=== PATIENT | female | born 1955 | race Caucasian/White ===

== ENCOUNTER 2020-03-01 11:33 | Outpatient (CLI) | payer BC, SELFPAY ==
[2020-03-01 13:03] LABS: Thyroid Stimulating Hormone 0.044 uIU/mL (0.465-4.680)
[2020-03-01 13:35] LABS: Free T4 Free Thyroxine 1.48 ng/mL (0.78-2.19)
== END 2020-03-01 11:34 | disposition home or self-care (01) ==
LOC: ANHLAB 11:35
PROVIDERS: PCP Internal Medicine; Visit Provider Nurse Practitioner
DX: E03.9 Hypothyroidism, unspecified (principal)
CPT/HCPCS: 36415; 84439; 84443

== ENCOUNTER 2020-05-07 10:01 | Outpatient (CLI) | payer BC, SELFPAY ==
[2020-05-07 10:59] LABS: Hematocrit 43.7 % (37.0-47.0); Hemoglobin 14.6 g/dL (12.0-15.0)
[2020-05-07 11:18] LABS: Alanine Aminotransferase 86 U/L (4-35); Albumin Level 4.6 g/dL (3.5-5.1); Alkaline Phosphatase 103 U/L (38-126); Anion Gap 7 mmol/L (8-16); Aspartate Amino Transferase 62 U/L (14-36); Bilirubin,Total 0.6 mg/dL (0.2-1.3); Blood Urea Nitrogen 12 mg/dL (7-17); Calcium 9.4 mg/dL (8.4-10.2); Carbon Dioxide 29 mmol/L (22-30); Chloride 104 mmol/L (98-107); Cholesterol 288 mg/dL (0-200); Estimated Glomerular Filt Rate > 60; Glucose 110 mg/dL (65-105); HDL Direct 45 mg/dL; Potassium 4.5 mmol/L (3.4-5.0); Sodium 140 mmol/L (137-145); Triglycerides 242 mg/dL (<150)
[2020-05-07 11:30] LABS: LDL Cholesterol Direct 191 mg/dL
[2020-05-07 11:51] LABS: Vitamin D 25 Hydroxy 40.2 ng/mL
== END 2020-05-07 10:02 | disposition home or self-care (01) ==
LOC: ANHLAB 10:02
PROVIDERS: PCP Internal Medicine; Visit Provider Internal Medicine
DX: E03.9 Hypothyroidism, unspecified (principal); I10 Essential (primary) hypertension; Z79.899 Other long term (current) drug therapy; E78.5 Hyperlipidemia, unspecified; E55.9 Vitamin D deficiency, unspecified; D64.9 Anemia, unspecified
CPT/HCPCS: 36415; 80053; 80061; 82306; 84443; 85014; 85018

== ENCOUNTER 2020-06-06 08:36 | Outpatient (CLI) | payer BC, SELFPAY ==
--- NOTE | ~2020-06-06 | MM_ITS ---
EXAMINATION: MM screening [facility] BI w eddie HISTORY: Screening mammogram TECHNIQUE: Craniocaudal and mediolateral oblique 3-D tomosynthesis images were obtained and synthetic 2-D images were generated. CAD analysis was submitted and interpreted. COMPARISON: 06/09/2019, 05/29/2019, 05/23/2018 BREAST PARENCHYMAL COMPOSITION: The breasts are almost entirely fatty. FINDINGS: There is no evidence of suspicious mass, calcification, or architectural distortion to sugg est malignancy in either breast. There has been no suspicious interval change. IMPRESSION: 1. No mammographic evidence of malignancy. 2. Recommend routine screening mammography in one year. BI-RADS Category 1: Negative Reviewed, dictated and finalized at location A.
== END 2020-06-06 08:37 | disposition home or self-care (01) ==
LOC: ANHIMG 08:44
PROVIDERS: PCP Internal Medicine; Visit Provider Internal Medicine
DX: Z12.31 Encounter for screening mammogram for malignant neoplasm of breast (principal)
CPT/HCPCS: 77063; 77067

== ENCOUNTER 2020-06-17 02:40 | Outpatient (CLI) | payer BC, SELFPAY ==
[2020-06-17 18:16] LABS: SARS-CoV-2 RNA PCR Negative
== END 2020-06-17 02:41 | disposition home or self-care (01) ==
LOC: ANHCOVIDDT 02:41
PROVIDERS: PCP Internal Medicine; Visit Provider Internal Medicine Gastroenterology
DX: Z01.812 Encounter for preprocedural laboratory examination (principal); Z20.828 Contact with and (suspected) exposure to other viral communicable diseases
CPT/HCPCS: 87635; C9803; U0003

== ENCOUNTER 2020-06-19 02:20 | Day surgery (SDC) | payer BC, SELFPAY ==
[2020-06-11 15:01] VITALS: BMI 24.2
[2020-06-19 10:17] VITALS: BP 132/65; PULSE 73; RESP 16; TEMP 36.7; O2SAT 100
[2020-06-19] MEDS: LACTATED RINGERS 1,000 ML 150 ML IV CONT (10:28)
[2020-06-19] MEDS: GENTAMICIN 80MG/SOD CHL 50 ML 80 MG/50 ML BAG 100 MG IVPB (10:29)
--- NOTE | 2020-06-19 10:32 | WPDANESEPPF ---
Anes - Initial Pre Proc Eval Procedure: Operation Date: 06/19/20 11:00 Proposed Procedures p Screening Colonoscopy - Star Zepeda MD Date/Time: 06/19/20 10:32 Surgeon: Star Zepeda MD Pre Op Diagnosis: Neoplasm Screening Patient Data Age: 65 Gender: F Height: 5 ft 2.5 in Weight: 62.2 kg Last Vital Signs Temp 36.7 C 06/19/20 10:17 Pulse 73 06/19/20 10:17 Resp 16 06/19/20 10:17 BP 132/65 06/19/20 10:17 Pulse Ox 100 06/19/20 10:17 Allergies Allergy/AdvReac Type Severity Reaction Status Date / Time No Known Allergies Allergy Mild Verified 06/19/20 10:16 Home Medications Medication Instructions Recorded Confirmed Type calcium carbonate 600 mg(1,500 1 tablet PO DAILY 09/19/19 06/19/20 History mg)-vitamin D3 800 unit chewable tablet cholecalciferol (vitamin D3) 50 2,000 unit PO DAILY 09/19/19 06/19/20 History mcg (2,000 unit) tablet atorvastatin 20 mg tablet 20 mg PO DAILY #30 tablet 05/20/20 06/19/20 Rx levothyroxine 75 mcg tablet 75 mcg PO DAILY #30 tablet 05/20/20 06/19/20 Rx omega 6-qvr-ajz-fish oil [Fish Oil] 1 cap PO DAILY 06/11/20 06/19/20 History Patient hx anesthesia problems: none Family hx anesthesia problems: none PMFSH Past Medical History Medical History Anemia Bronchitis Elevated triglycerides with high cholesterol Elevated TSH Fractures Left hand Hypercholesterolemia Pneumonia Seasonal allergies Surgical History Surgical History History of hysterectomy History of tonsillectomy History of tubal ligation Family History Family History Mother Family history of renal failure Patient's mother is Family history of kidney disease Father Patient's father is Acute myocardial infarction Social History Social History Smoking status: Former smoker Tobacco type: cigarettes Alcohol intake: former Alcohol use details: SOCIAL QUIT 5 YRS AGO Substance use: never Substance use type: does not use Living arrangements: with family Spiritual care concerns: No Anes - Eval Final PreProcedure Day of Procedure 06/19/20 10:32 Patient weight: normal Heart: regular rate and rhythm Lungs: clear to auscultation Airway: Mallampati scale class II Neurological: alert and oriented Last oral intake: >/= 8 hours ASA classification: III Emergent: no Anesthetic plan: proceed Anesthesia type and monitoring: general GIVS and standard monitoring Informed Consent: The patient's anesthetic plan and its attendant risks and benefits were discussed with the patient/family/POA. Questions were solicited and answers provided to the satisfaction of the patient/family/POA.
--- NOTE | 2020-06-19 10:52 | PM.HPGS ---
History of Present Illness History of Present Illness Consent: Risks, benefits, and alternatives have been discussed and questions answered. Patient agrees to proceed with procedure. Chief complaint: Neoplasm Screening Narrative: Jaelyn Knapp is a 65 year old female here for colon cancer screening. Her last colonoscopy was 13 years ago Review of Systems Review of Systems: All systems reviewed & are unremarkable except as noted in HPI and below PMFSH Past Medical History Medical History Anemia Bronchitis Elevated triglycerides with high cholesterol Elevated TSH Fractures Left hand Hypercholesterolemia Pneumonia Seasonal allergies Surgical History Surgical History History of hysterectomy History of tonsillectomy History of tubal ligation Family History Family History Mother Family history of renal failure Patient's mother is Family history of kidney disease Father Patient's father is Acute myocardial infarction Social History Social History Smoking status: Former smoker Tobacco type: cigarettes Alcohol intake: former Alcohol use details: SOCIAL QUIT 5 YRS AGO Substance use: never Substance use type: does not use Living arrangements: with family Spiritual care concerns: No Meds Home Medications and Allergies Home Medications Medication Instructions Recorded Confirmed Type calcium carbonate 600 mg(1,500 1 tablet PO DAILY 09/19/19 06/19/20 History mg)-vitamin D3 800 unit chewable tablet cholecalciferol (vitamin D3) 50 2,000 unit PO DAILY 09/19/19 06/19/20 History mcg (2,000 unit) tablet atorvastatin 20 mg tablet 20 mg PO DAILY #30 tablet 05/20/20 06/19/20 Rx levothyroxine 75 mcg tablet 75 mcg PO DAILY #30 tablet 05/20/20 06/19/20 Rx omega 4-nnx-tpx-fish oil [Fish Oil] 1 cap PO DAILY 06/11/20 06/19/20 History Allergies Allergy/AdvReac Type Severity Reaction Status Date / Time No Known Allergies Allergy Mild Verified 06/19/20 10:16 Vital Signs Vital Signs - 24 hr 06/19/20 10:17 Temperature 36.7 C Pulse Rate 73 Respiratory Rate 16 Blood Pressure 132/65 Pulse Oximetry 100 Exam Resp: Auscultation: clear to auscultation bilaterally Cardio: Rate: regular rate Rhythm: regular rhythm GI: GI Palp: Yes Soft to palpation and No Tenderness to palpation present (GI) Assessment and Plan Assessment and plan (1) Colon cancer screening: Code(s): Z12.11 - Encounter for screening for malignant neoplasm of colon Status: Acute Assessment and Plan: Colonoscopy with possible biopsy or polypectomy or cautery or injection of substances.
[2020-06-19] MEDS: AMPICILLIN 2 GM/NS 100 ML 2 GM/100 ML BAG IVPB (11:01)
[2020-06-19 11:35] VITALS: BP 124/79; PULSE 70; RESP 24; O2SAT 100
[2020-06-19 11:45] VITALS: BP 128/77; PULSE 70; RESP 21; O2SAT 100
[2020-06-19 11:53] VITALS: BP 121/77; PULSE 70; RESP 19; O2SAT 100
== END 2020-06-19 12:12 | disposition home or self-care (01) ==
PROVIDERS: PCP Internal Medicine; Visit Provider Internal Medicine Gastroenterology
PROC: 0DJD8ZZ Inspection of Lower Intestinal Tract, Via Natural or Artificial Opening Endoscopic (ICD-10-PCS; CPT 45378; principal; 2020-06-19 11:00)
DX: Z12.11 Encounter for screening for malignant neoplasm of colon (principal); K57.30 Diverticulosis of large intestine without perforation or abscess without bleeding; D64.9 Anemia, unspecified; E78.00 Pure hypercholesterolemia, unspecified; E78.1 Pure hyperglyceridemia; Z87.891 Personal history of nicotine dependence
CPT/HCPCS: 45378; J0290; J1580; J2001; J2704; J7120

== ENCOUNTER 2020-11-18 08:45 | Outpatient (CLI) | payer BC, SELFPAY ==
[2020-11-18 09:10] LABS: Potassium 4.4 mmol/L (3.4-5.0)
[2020-11-18 09:11] LABS: Alanine Aminotransferase 64 U/L (4-35); Alkaline Phosphatase 89 U/L (38-126); Anion Gap 6 mmol/L (8-16); Aspartate Amino Transferase 39 U/L (14-36); Bilirubin,Total 0.5 mg/dL (0.2-1.3); Blood Urea Nitrogen 11 mg/dL (7-17); Calcium 9.1 mg/dL (8.4-10.2); Carbon Dioxide 31 mmol/L (22-30); Chloride 106 mmol/L (98-107); Cholesterol 161 mg/dL (0-200); Estimated Glomerular Filt Rate > 60; Glucose 133 mg/dL (65-105); HDL Direct 53 mg/dL; Sodium 143 mmol/L (137-145); Triglycerides 143 mg/dL (<150)
[2020-11-18 09:22] LABS: LDL Cholesterol Direct 85 mg/dL
== END 2020-11-18 08:46 | disposition home or self-care (01) ==
PROVIDERS: PCP Internal Medicine; Visit Provider Internal Medicine
DX: E78.5 Hyperlipidemia, unspecified (principal); Z79.899 Other long term (current) drug therapy; E03.9 Hypothyroidism, unspecified
CPT/HCPCS: 36415; 80053; 80061; 84443

== ENCOUNTER 2021-05-22 09:35 | Outpatient (CLI) | payer BC, SELFPAY ==
[2021-05-22 10:12] LABS: Alanine Aminotransferase 43 U/L (4-35); Albumin Level 4.3 g/dL (3.5-5.1); Alkaline Phosphatase 93 U/L (38-126); Anion Gap 7 mmol/L (8-16); Aspartate Amino Transferase 33 U/L (14-36); Bilirubin,Total 0.6 mg/dL (0.2-1.3); Blood Urea Nitrogen 16 mg/dL (7-17); Calcium 9.7 mg/dL (8.4-10.2); Carbon Dioxide 30 mmol/L (22-30); Chloride 106 mmol/L (98-107); Cholesterol 161 mg/dL (0-200); Estimated Glomerular Filt Rate > 60; Glucose 126 mg/dL (65-110); HDL Direct 43 mg/dL; Potassium 4.5 mmol/L (3.4-5.0); Sodium 143 mmol/L (137-145); Triglycerides 156 mg/dL (<150)
[2021-05-22 10:13] LABS: Hemoglobin A1C 5.4 % (<5.7)
[2021-05-22 10:23] LABS: LDL Cholesterol Direct 82 mg/dL
[2021-05-22 11:39] LABS: Vitamin D 25 Hydroxy 54.7 ng/mL
== END 2021-05-22 09:36 | disposition home or self-care (01) ==
LOC: ANHLAB 09:36
PROVIDERS: PCP Internal Medicine; Visit Provider Nurse Practitioner
DX: E55.9 Vitamin D deficiency, unspecified (principal); R73.9 Hyperglycemia, unspecified; E78.5 Hyperlipidemia, unspecified
CPT/HCPCS: 36415; 80053; 80061; 82306; 83036

== ENCOUNTER 2021-07-21 17:58 | Emergency (ER) | payer BC, SELFPAY ==
--- NOTE | ~2021-07-21 | XR_ITS ---
EXAMINATION: XR foot LT min 3V DATE: 07/21/2021 18:18 INDICATION: Dorsal left foot pain TECHNIQUE: Dorsoplantar, two oblique and lateral views of the left foot were obtained. COMPARISON: None. FINDINGS: Alignment is normal. No fracture. Mild polyarticular osteoarthritis at the first metatarsophalangeal and several tarsal metatarsal and interphalangeal joints. Small Achilles and plantar calcaneal spurs. Soft tissues are unremarkable. IMPRESSION: 1. Mild polyarticular osteoarthritis in the mid and forefoot. Reviewed, dictated and finalized at location A. S MANAGER
[2021-07-21 18:08] VITALS: BP 157/76; PULSE 72; RESP 18; TEMP 37.1; O2SAT 100
--- NOTE | 2021-07-21 19:29 | ED.LOWEXIN ---
HPI - Extremity Injury (Lower) General Chief Complaint: Extremity Injury, Lower Stated Complaint: Left Foot Pain Time Seen by Provider: 07/21/21 19:29 Source: patient, RN notes reviewed and old records reviewed Mode of arrival: ambulatory Limitations: no limitations History of Present Illness HPI Narrative: 66 year old female who presents to [facility] care with complaints of pain to her left foot since the 09 of July. Patient states that she was walking and she stopped suddenly putting pressure onto her left foot with continued discomfort to distal dorsal aspect of her foot which she describes as throbbing and burning. Patient states that initially she had swelling to her dorsal foot but that has decreased, Patient reports that she has been taking Ibuprofen and Aleve for her discomfort. Patient states that pain is aggravated by weight bearing. MD complaint: foot injury Onset (ago): day(s) (12) Severity scale (1-10): 3 Exacerbating factors: weight bearing Treatments prior to arrival: NSAIDS Related Data Home Medications Medication Instructions Recorded Confirmed calcium carbonate 600 mg(1,500 1 tablet PO DAILY 09/19/19 07/21/21 mg)-vitamin D3 800 unit chewable tablet cholecalciferol (vitamin D3) 50 2,000 unit PO DAILY 09/19/19 07/21/21 mcg (2,000 unit) tablet omega 8-vxc-oef-fish oil [Fish Oil] 1 cap PO DAILY 06/11/20 07/21/21 Allergies Allergy/AdvReac Type Severity Reaction Status Date / Time No Known Allergies Allergy Mild Verified 07/21/21 19:37 Review of Systems Review of Systems: CONSTITUTIONAL: Denies fever, chills, or sweats. EYES: Denies visual changes, redness, or discharge. ENT: Denies rhinorrhea, congestion, sore throat, or otalgia. CARDIOVASCULAR: Denies chest pain, palpitations, or edema. RESPIRATORY: Denies cough or dyspnea. GASTROINTESTINAL: Denies abdominal pain, nausea, vomiting, or diarrhea. GENITOURINARY: Denies dysuria or hematuria. SKIN: Denies rash or itching. MUSCULOSKELETAL: Denies back pain, pain to left foot dorsal aspect, or myalgia. NEUROLOGIC: Denies headache, numbness, or weakness. PSYCHIATRIC: Denies anxiety or depression. All systems reviewed & are unremarkable except as noted in HPI and below PMFSH Past Medical History Medical History Anemia Bronchitis Elevated triglycerides with high cholesterol Elevated TSH Fractures Left hand Hypercholesterolemia Pneumonia Seasonal allergies Surgical History Surgical History History of hysterectomy History of tonsillectomy History of tubal ligation Family History Family History Mother Family history of renal failure Patient's mother is Family history of kidney disease Father Patient's father is Acute myocardial infarction Social History Social History Smoking packs per day: 0.75 Smoking cigarettes per day: 15.0 Years smoked: 10 Smoking pack-years: 7.50 Smoking status: Former smoker Tobacco type: cigarettes Second hand tobacco smoke exposure: Yes Smoking end date: 09/06/14 Alcohol intake: former Alcohol use details: SOCIAL QUIT 5 YRS AGO Substance use: never Substance use type: does not use Spiritual care concerns: No Comments At time of signature, agree with nursing past medical, surgical, social and family history. There is no relevant family history pertinent to the presenting complaint Exam Narrative: GENERAL: Well-appearing, well-nourished, and in no acute distress. HEAD: Normocephalic, atraumatic. EYES: PERRLA and EOMI. ENT: Nares clear, no rhinorrhea or epistaxis. Mucous membranes moist.TM's normal with no redness, exudates, or lesions of throat, tonsils absent. NECK: Supple.no lymphadenopathy CHEST: Clear to auscultation. No respiratory d
== END 2021-07-21 19:45 | disposition home or self-care (01) ==
PROVIDERS: Emergency Provider Registered Nurse; PCP Internal Medicine
DX: M79.672 Pain in left foot (principal); E78.00 Pure hypercholesterolemia, unspecified
CPT/HCPCS: 73630; 99213; G0463

== ENCOUNTER 2021-08-07 07:17 | Outpatient (CLI) | payer BC, SELFPAY ==
--- NOTE | ~2021-08-07 | MM_ITS ---
EXAMINATION: MM screening [facility] BI w eddie HISTORY: Screening mammogram TECHNIQUE: Craniocaudal and mediolateral oblique 3-D tomosynthesis images were obtained and synthetic 2-D images were generated. CAD analysis was submitted and interpreted. COMPARISON: 06/06/2020, 06/09/2019, 05/29/2019 bilateral screening mammogram examinations BREAST PARENCHYMAL COMPOSITION: The breasts are almost entirely fatty. FINDINGS: There is no evidence of suspicious mass, calcification, or architectural distortion to sugg est malignancy in either breast. There has been no suspicious interval change. IMPRESSION: 1. No mammographic evidence of malignancy. 2. Recommend routine screening mammography in one year. BI-RADS Category 1: Negative Reviewed, dictated and finalized at location A. R ASSEMBLER
== END 2021-08-07 07:18 | disposition home or self-care (01) ==
LOC: ANHIMG 07:21
PROVIDERS: PCP Internal Medicine; Visit Provider Internal Medicine
DX: Z12.31 Encounter for screening mammogram for malignant neoplasm of breast (principal)
CPT/HCPCS: 77063; 77067

== ENCOUNTER 2021-09-11 17:50 | Emergency (ER) | payer BC, SELFPAY ==
[2021-09-11 18:05] VITALS: BP 130/73; PULSE 82; RESP 16; TEMP 37.3; O2SAT 99
--- NOTE | 2021-09-11 19:10 | ED.EAR ---
HPI - Ear Problem General Chief complaint: Ear Stated complaint: ear pain Time Seen by Provider: 09/11/21 19:11 Source: patient, RN notes reviewed and old records reviewed Mode of arrival: ambulatory Limitations: no limitations History of Present Illness HPI Narrative: 66-year-old female presents to [facility] Care with complaints of right ear pain since the of month. She states that she called her PCP earlier and stated that she had feelings of ear drainage from right ear with itching, no redness at that time. Patient states that in past few days right ear pain has increased with outer ear red with tragal tenderness noted and some clear drainage noted. Patient has been using some OTC ear gtts to her right ear. Patient has stated that she had been using fingernail prior to acute pain to itch ear doesn't know if that has made it worse. Patient has been taking OTC pain medication with no improvement. MD Complaint: ear pain Related Data Home Medications Medication Instructions Recorded Confirmed calcium carbonate 600 mg-vitamin 1 tablet PO DAILY 09/19/19 09/11/21 D3 20 mcg (800 unit) chewable tablet cholecalciferol (vitamin D3) 50 2,000 unit PO DAILY 09/19/19 09/11/21 mcg (2,000 unit) tablet omega 3-xbv-lbw-fish oil [Fish Oil] 1 cap PO DAILY 06/11/20 09/11/21 Allergies Allergy/AdvReac Type Severity Reaction Status Date / Time No Known Allergies Allergy Mild Verified 09/11/21 18:13 Review of Systems Review of Systems: CONSTITUTIONAL: Positive for low grade fever,no chills, or sweats. EYES: Denies visual changes, redness, or discharge. ENT: positive for rhinorrhea, congestion, no sore throat right ear pain with drainage CARDIOVASCULAR: Denies chest pain, palpitations, or edema. RESPIRATORY: Denies cough or dyspnea. GASTROINTESTINAL: Denies abdominal pain, nausea, vomiting, or diarrhea. GENITOURINARY: Denies dysuria or hematuria. SKIN: Denies rash or itching. MUSCULOSKELETAL: Denies back pain, joint pain, or myalgia. NEUROLOGIC: Denies headache, numbness, or weakness. PSYCHIATRIC: Denies anxiety or depression. All systems reviewed & are unremarkable except as noted in HPI and below PMFSH Past Medical History Medical History Anemia Bronchitis Elevated triglycerides with high cholesterol Elevated TSH Fractures Left hand Hypercholesterolemia Pneumonia Seasonal allergies Surgical History Surgical History History of hysterectomy History of tonsillectomy History of tubal ligation Family History Family History Mother Family history of renal failure Patient's mother is Family history of kidney disease Father Patient's father is Acute myocardial infarction Social History Social History Smoking packs per day: 0.75 Smoking cigarettes per day: 15.0 Years smoked: 10 Smoking pack-years: 7.50 Smoking status: Former smoker Tobacco type: cigarettes Second hand tobacco smoke exposure: Yes Smoking end date: 09/06/14 Alcohol intake: former Alcohol use details: SOCIAL QUIT 5 YRS AGO Substance use: never Substance use type: does not use Spiritual care concerns: No Comments At time of signature, agree with nursing past medical, surgical, social and family history. There is no relevant family history pertinent to the presenting complaint Exam Narrative: GENERAL Ill-appearing, well-nourished, and in no acute distress. HEAD: Normocephalic, atraumatic. EYES: PERRLA and EOMI. ENT: Nares mild redness with clear rhinorrhea no epistaxis. Mucous membranes moist.Right TM red bulging, ear canal red excoriated with swelling clear drainage noted tragal tenderness, Left TM normal with good light reflex no drainage noted. throat pink with no lesions or exudates
== END 2021-09-11 19:40 | disposition home or self-care (01) ==
PROVIDERS: Emergency Provider Registered Nurse; PCP Internal Medicine
DX: H60.311 Diffuse otitis externa, right ear (principal); H65.01 Acute serous otitis media, right ear; Z87.891 Personal history of nicotine dependence; E78.00 Pure hypercholesterolemia, unspecified; E78.2 Mixed hyperlipidemia
CPT/HCPCS: 99213; G0463

== ENCOUNTER 2021-12-25 10:04 | Outpatient (CLI) | payer BC, SELFPAY ==
[2021-12-25 10:50] LABS: Alanine Aminotransferase 20 U/L (4-35); Albumin Level 4.2 g/dL (3.5-5.1); Alkaline Phosphatase 98 U/L (38-126); Anion Gap 3 mmol/L (8-16); Aspartate Amino Transferase 21 U/L (14-36); Bilirubin,Total 0.6 mg/dL (0.2-1.3); Blood Urea Nitrogen 17 mg/dL (7-17); Calcium 9.2 mg/dL (8.4-10.2); Carbon Dioxide 31 mmol/L (22-30); Chloride 105 mmol/L (98-107); Cholesterol 187 mg/dL (0-200); Estimated Glomerular Filt Rate > 60; Glucose 107 mg/dL (65-110); HDL Direct 39 mg/dL; Potassium 4.4 mmol/L (3.4-5.0); Sodium 139 mmol/L (137-145); Triglycerides 147 mg/dL (<150)
[2021-12-25 11:01] LABS: LDL Cholesterol Direct 99 mg/dL
[2021-12-25 11:20] LABS: Thyroid Stimulating Hormone 0.683 uIU/mL (0.465-4.680)
[2021-12-25 11:25] LABS: Vitamin D 25 Hydroxy 51.5 ng/mL
[2021-12-25 12:17] LABS: Hemoglobin A1C 5.2 % (<5.7)
== END 2021-12-25 10:05 | disposition home or self-care (01) ==
LOC: ANHLAB 10:06
PROVIDERS: PCP Internal Medicine; Visit Provider Internal Medicine
DX: E03.9 Hypothyroidism, unspecified (principal); I10 Essential (primary) hypertension; Z79.899 Other long term (current) drug therapy; E78.5 Hyperlipidemia, unspecified; E55.9 Vitamin D deficiency, unspecified; R73.01 Impaired fasting glucose
CPT/HCPCS: 36415; 80053; 80061; 82306; 83036; 84443

== ENCOUNTER 2022-06-01 10:32 | Outpatient (CLI) | payer BC, SELFPAY ==
[2022-06-01 13:29] LABS: Alanine Aminotransferase 43 U/L (6-35); Albumin Level 4.1 g/dL (3.5-5.1); Alkaline Phosphatase 110 U/L (38-126); Anion Gap 7 mmol/L (8-16); Aspartate Amino Transferase 30 U/L (14-36); Bilirubin,Total 0.6 mg/dL (0.2-1.3); Blood Urea Nitrogen 14 mg/dL (7-17); Calcium 9.2 mg/dL (8.4-10.2); Carbon Dioxide 27 mmol/L (22-30); Chloride 104 mmol/L (98-107); Cholesterol 210 mg/dL (0-200); Estimated Glomerular Filt Rate > 60; Glucose 119 mg/dL (65-110); HDL Direct 49 mg/dL; Sodium 138 mmol/L (137-145); Triglycerides 206 mg/dL (<150)
[2022-06-01 13:40] LABS: LDL Cholesterol Direct 124 mg/dL
== END 2022-06-01 10:33 | disposition home or self-care (01) ==
PROVIDERS: PCP Internal Medicine; Visit Provider Internal Medicine
DX: E78.5 Hyperlipidemia, unspecified (principal); E03.9 Hypothyroidism, unspecified
CPT/HCPCS: 36415; 80053; 80061; 84443

== ENCOUNTER 2022-09-17 09:04 | Outpatient (CLI) | payer BC, SELFPAY ==
--- NOTE | ~2022-09-17 | MM_ITS ---
EXAMINATION: MM screening [facility] BI w eddie HISTORY: Screening TECHNIQUE: Craniocaudal and mediolateral oblique 3-D tomosynthesis images were obtained and synthetic 2-D images were generated. CAD analysis was submitted and interpreted. COMPARISON: Comparison to multiple prior studies sequentially, with oldest reviewed study dated 05/19. BREAST PARENCHYMAL COMPOSITION: Breast composed of scattered areas of fibroglandular density FINDINGS: There is a new small mass in the upper outer quadrant of the right breast posteriorly. The left breast is stable without evidence for malignancy. IMPRESSION: 1. New small right breast mass in the upper outer quadrant posteriorly. 2. Additional mammographic views and possible breast ultrasound are recommended. BI-RADS Category 0: Incomplete: Needs additional imaging evaluation. Reviewed, dictated and finalized at location A. AURANT BUSSER IMPRESSION: 1. New small right breast mass in the upper outer quadrant posteriorly. 2. Additional mammographic views and possible breast ultrasound are recommended . BI-RADS Category 0: Incomplete: Needs additional imaging evaluation.
== END 2022-09-17 09:05 | disposition home or self-care (01) ==
PROVIDERS: Visit Provider Nurse Practitioner
DX: Z12.31 Encounter for screening mammogram for malignant neoplasm of breast (principal); R92.8 Other abnormal and inconclusive findings on diagnostic imaging of breast
CPT/HCPCS: 77063; 77067

== ENCOUNTER 2022-10-02 13:14 | Outpatient (CLI) | payer BC, SELFPAY ==
--- NOTE | ~2022-10-02 | MMUS_ITS ---
EXAMINATION: MM diagnostic [facility] RT w eddie, US breast RT limited HISTORY: Follow-up right breast mass TECHNIQUE: Additional 3-D tomosynthesis images of the breasts were performed and synthetic 2-D images were generated. CAD analysis was submitted and interpreted. High resolution Limited right breast ult rasound was performed. COMPARISON: Comparison to multiple prior studies sequentially, with oldest reviewed study dated 05/23. BREAST PARENCHYMAL COMPOSITION: Breast composed of scattered areas of fibroglandular density FINDINGS: MAMMOGRAPHIC FINDINGS: There are circumscribed masses in the upper outer quadrant of the right breast, most likely benign in tramammary lymph nodes. ULTRASOUND: Limited right breast ultrasound: Normal heterogeneous echotexture in the area of mammographic concern . IMPRESSION: 1. Probable benign right breast masses in the upper outer quadrant posteriorly. No sonographic correl ate. 2. Recommend 6 month follow-up diagnostic right mammogram BI-RADS category 3, probably benign findings. Reviewed, dictated and finalized at location A. ENT TEACHING COORDINATOR IMPRESSION: 1. Probable benign right breast masses in the upper outer quadrant posteriorly. No sonographic correlate. 2. Recommend 6 month follow-up diagnostic right mammogram BI-RADS category 3, probably benign findings.
== END 2022-10-02 13:15 | disposition home or self-care (01) ==
LOC: ANHIMG 13:15
PROVIDERS: PCP Nurse Practitioner; Visit Provider Nurse Practitioner
DX: R92.8 Other abnormal and inconclusive findings on diagnostic imaging of breast (principal)
CPT/HCPCS: 76642; 77061; 77065; G0279

== ENCOUNTER 2022-10-22 16:17 | Emergency (ER) | payer BC, SELFPAY ==
--- NOTE | ~2022-10-22 | XR_ITS ---
XR foot RT min 3V 10/22/2022 16:55 Indication: Right foot pain Procedure: 4 views right foot Comparison: No prior studies for comparison. Findings: There is moderate osteoarthritis of the first MTP joint. There is mild osteoarthritis of th e midfoot. Mild hallux valgus. Normal mineralization. There are degenerative calcaneal enthesophytes. Lisfranc joint intact. No focal soft tissue abnormality. No foreign bodies. Impression: 1: No acute bone or joint abnormality. Reviewed, dictated and finalized at location A. KER ON Impression: 1: No acute bone or joint abnormality.
[2022-10-22 16:29] VITALS: BP 111/74; PULSE 89; RESP 16; TEMP 37.1; O2SAT 98
--- NOTE | 2022-10-22 16:36 | ED.LOWEXIN ---
HPI - Extremity Injury (Lower) General Chief Complaint: Extremity Injury, Lower Stated Complaint: right foot pain Time Seen by Provider: 10/22/22 16:36 Source: patient Mode of arrival: ambulatory Limitations: no limitations History of Present Illness HPI Narrative: 67-year-old female presents with complaint of right foot pain for 3 weeks. Patient reports that she got from a stool when sitting in the kitchen and foot was asleep. She took a step towards the bathroom and her foot twisted under her causing her to fall to the ground. States she has pain for 3 weeks thought that it would get better but is not. Worse when ambulatory. Distal neurovascularly intact. All systems reviewed and negative except as noted above. Related Data Home Medications Medication Instructions Recorded Confirmed calcium carbonate 600 mg-vitamin 1 tablet PO DAILY 09/19/19 07/23/22 D3 20 mcg (800 unit) chewable tablet (Caltrate 600 plus D) cholecalciferol (vitamin D3) 50 2,000 unit PO DAILY 09/19/19 07/23/22 mcg (2,000 unit) tablet omega 7-lxj-mxu-fish oil 1,200 mg 1 cap PO DAILY 06/11/20 07/23/22 (144 mg-216 mg) capsule (Fish Oil) ofloxacin 0.3 % ear drops 5 drp EACH EAR 07/23/22 07/23/22 Allergies Allergy/AdvReac Type Severity Reaction Status Date / Time No Known Allergies Allergy Mild Verified 07/23/22 11:08 Review of Systems Review of Systems: CONSTITUTIONAL: Denies fever, chills, or sweats. EYES: Denies visual changes, redness, or discharge. ENT: Denies rhinorrhea, congestion, sore throat, or otalgia. CARDIOVASCULAR: Denies chest pain, palpitations, or edema. RESPIRATORY: Denies cough or dyspnea. GASTROINTESTINAL: Denies abdominal pain, nausea, vomiting, or diarrhea. GENITOURINARY: Denies dysuria or hematuria. SKIN: Denies rash or itching. MUSCULOSKELETAL: Denies back pain, joint pain, or myalgia. Reports right foot pain. NEUROLOGIC: Denies headache, numbness, or weakness. PSYCHIATRIC: Denies anxiety or depression. All other systems reviewed are negative, except as documented in HPI. [facility] Past Medical History Medical History Anemia Bronchitis Elevated triglycerides with high cholesterol Elevated TSH Fractures Left hand Hypercholesterolemia Pacemaker Pneumonia Seasonal allergies Surgical History Surgical History Heart valve replaced History of hysterectomy History of tonsillectomy History of tubal ligation Family History Family History Mother Family history of renal failure Patient's mother is Family history of kidney disease Father Patient's father is Acute myocardial infarction Heart disease Son Heart disease Grandparent Heart disease Social History Social History (Updated 07/23/22 @ 11:16 by DANIELLE Carrillo) Smoking packs per day: 0.75 Smoking cigarettes per day: 15.0 Years smoked: 10 Smoking pack-years: 7.50 Smoking status: Former smoker Tobacco type: cigarettes Second hand tobacco smoke exposure: Yes Smoking end date: 09/06/14 Alcohol intake: former Alcohol use details: SOCIAL QUIT 5 YRS AGO Substance use: never Substance use type: does not use Lack of Transportation: No Lack of Food: Sometimes True Current Housing: I Have Housing Concerned About Future Housing: No Difficulty Paying Gas/Electric Bills: No Difficulty Paying for Meds: No Currently Unemployed: No Education: High School Diploma/GED Difficulty w/ Childcare or Family Care: No Living arrangements: with family Spiritual care concerns: No Comments At time of signature, agree with nursing past medical, surgical, social and family history. There is no relevant family history pertinent to the presenting complaint. Exam Narrative: GENERAL: This is a well-nourished, well-developed patien
== END 2022-10-22 17:19 | disposition home or self-care (01) ==
PROVIDERS: Emergency Provider Nurse Practitioner Family; PCP Internal Medicine
DX: S93.601A Unspecified sprain of right foot, initial encounter (principal); W19.XXXA Unspecified fall, initial encounter; M19.071 Primary osteoarthritis, right ankle and foot; Z87.891 Personal history of nicotine dependence; E78.00 Pure hypercholesterolemia, unspecified; Z95.2 Presence of prosthetic heart valve; Z95.0 Presence of cardiac pacemaker
CPT/HCPCS: 73630; 99213; G0463

== ENCOUNTER 2022-12-28 11:46 | Outpatient (CLI) | payer BC, SELFPAY ==
[2022-12-28 12:18] LABS: Alanine Aminotransferase 27 U/L (6-35); Albumin Level 4.6 g/dL (3.5-5.1); Alkaline Phosphatase 107 U/L (38-126); Anion Gap 4 mmol/L (8-16); Aspartate Amino Transferase 26 U/L (14-36); Bilirubin,Total 0.9 mg/dL (0.2-1.3); Blood Urea Nitrogen 12 mg/dL (7-17); Calcium 9.3 mg/dL (8.4-10.2); Carbon Dioxide 32 mmol/L (22-30); Chloride 105 mmol/L (98-107); Cholesterol 163 mg/dL (0-200); Estimated Glomerular Filt Rate > 60; Glucose 104 mg/dL (65-110); HDL Direct 46 mg/dL; Potassium 4.1 mmol/L (3.4-5.0); Sodium 141 mmol/L (137-145); Triglycerides 144 mg/dL (<150)
[2022-12-28 12:31] LABS: LDL Cholesterol Direct 89 mg/dL
[2022-12-28 12:52] LABS: Thyroid Stimulating Hormone 0.234 uIU/mL (0.465-4.680)
== END 2022-12-28 11:47 | disposition home or self-care (01) ==
PROVIDERS: PCP Internal Medicine; Visit Provider Internal Medicine
DX: E78.2 Mixed hyperlipidemia (principal); Z79.899 Other long term (current) drug therapy; I10 Essential (primary) hypertension; E03.9 Hypothyroidism, unspecified
CPT/HCPCS: 36415; 80053; 80061; 84443

== ENCOUNTER 2023-01-14 08:16 | Outpatient (CLI) | payer BC, SELFPAY ==
--- NOTE | ~2023-01-14 | CT_ITS ---
CT Scan of the Chest without Contrast: Clinical Indication: Lung cancer screening, smoking history Technique: Contiguous sections were acquired throughout the chest without intravenous contrast. Dose reduction technique was used on this scan by utilizing automated exposure control and iterative recon struction technique. The dose-length product (DLP) was 75.55 mGy-cm. COMPARISON: 06/21/2018 Findings: There is no evidence of any significant mediastinal, hilar or axillary lymphadenopathy. There are ath erosclerotic calcifications of the aorta. There is postoperative change the ascending aorta, with und erlying aneurysm measuring approximately 4.6 cm in diameter. Coronary artery calcifications are prese nt. There is no evidence of pleural or pericardial effusion. The lungs are clear. No pulmonary nodules or infiltrates are noted. Images through the upper abdomen reveal no abnormalities. Impression: Lung RADS 1: Negative. 12 month follow-up screening CT advised. Ascending aortic aneurysm with evidence of prior repair/postoperative change. Correlate with surgical history. Reviewed, dictated and finalized at [facility]. Impression: Lung RADS 1: Negative. 12 month follow-up screening CT advised. Ascending aortic aneurysm with evidence of prior repair/postoperative change. C orrelate with surgical history.
== END 2023-01-14 08:17 | disposition home or self-care (01) ==
PROVIDERS: PCP Family Medicine; Visit Provider Family Medicine
DX: Z12.2 Encounter for screening for malignant neoplasm of respiratory organs (principal); Z87.891 Personal history of nicotine dependence; I71.40 Abdominal aortic aneurysm, without rupture, unspecified
CPT/HCPCS: 71271

== ENCOUNTER 2023-03-18 10:41 | Outpatient (CLI) | payer BC, SELFPAY ==
[2023-03-18 12:48] LABS: Free T4 Free Thyroxine 1.28 ng/mL (0.78-2.19)
== END 2023-03-18 10:42 | disposition home or self-care (01) ==
PROVIDERS: PCP Family Medicine; Visit Provider Nurse Practitioner Family
DX: E03.9 Hypothyroidism, unspecified (principal)
CPT/HCPCS: 36415; 84439

== ENCOUNTER 2023-04-01 12:15 | Outpatient (CLI) | payer BC, SELFPAY ==
--- NOTE | ~2023-04-01 | MM_ITS ---
EXAMINATION: MM diagnostic [facility] RT w eddie HISTORY: Six-month follow-up for probably benign right breast masses TECHNIQUE: Craniocaudal, mediolateral, and mediolateral oblique 3-D tomosynthesis images of the right breast were performed and synthetic 2-D images were generated. CAD analysis was submitted and interp reted. COMPARISON: Prior mammograms dating back to 05/23/2018 BREAST PARENCHYMAL COMPOSITION: The breasts are almost entirely fatty. FINDINGS: There is a return to baseline fibroglandular appearance with spot compression of the right breast in the area questioned on screening mammogram. No suspicious mass, calcification, or technical systems architect ural distortion are identified. There has been no suspicious interval change. IMPRESSION: 1. No mammographic evidence of malignancy. 2. Recommend routine screening mammography, due in six months. BI-RADS Category 1: Negative Reviewed, dictated and finalized at location A.
--- NOTE | ~2023-04-01 | DEXA_ITS ---
Bone Density Report Name: KITA HOOVER Age: 67 Sex: Female Ethnicity: White Date of : 1955 Indication: osteopenia; hysterectomy; postmenopausal Referring Provider: AYAKA JACOBO Study: Bone densitometry was performed. Exam Date: April 01, 2023 Accession number: [id number] Bone Density: Region BMD T-score Z-score Classification AP Spine(L1-L4) 0.893 -1.4 0.6 Osteopenia Femoral Neck (Left) 0.635 -1.9 -0.3 Osteopenia Total Hip (Left) 0.820 -1.0 0.4 Normal Femoral Neck (Right) 0.690 -1.4 0.2 Osteopenia Total Hip (Right) 0.839 -0.8 0.5 Normal Total Hip Mean 0.829 -0.9 0.5 Normal World Health Organization criteria for BMD impression classify patients as: Normal (T-score at or above -1.0), Osteopenia (T-score between -1.0 and -2.5), or Osteoporosis (T-score at or below -2.5). Previous Exams: Region Exam Age BMD T-score BMD Change BMD Change Date g/cm2 vs Baseline vs Previous AP Spine (L1-L4) 04/01/2023 67 0.893 -1.4 -0.010 (-1.1%) -0.010 (-1.1%) 02/25/2015 59 0.903 -1.3 Total Hip(Left) 04/01/2023 67 0.820 -1.0 -0.062 (-7.0%) -0.062 (-7.0%) 02/25/2015 59 0.882 -0.5 Total Hip(Right) 04/01/2023 67 0.839 -0.8 -0.017 (-2.0%) -0.017 (-2.0%) 02/25/2015 59 0.856 -0.7 *Denotes significance at 95% confidence level, LSC for AP Spine = 0.022 g/cm2, LSC for Total Hip = 0.027 g/cm2 Clinical Information Provided by Patient: Has used the following medications: Vitamin D, Calcium Has the following medical conditions: Hysterectomy Patient maximum height was 62.5 Menopause Age: 50 Does not regularly consume dairy products Drinks caffeinated beverages Onset of menses at age 12 Number of children 2 Impression: The patient has low bone mass, based on the Left Femoral Neck T-score. The BMD for the Total Hip(Left) decreased, changing by -7.0% since the last DXA exam. Discussion: BONE DENSITY IS LOW AT ONE OR MORE SKELETAL SITES. This patient's lowest T-score is low at one or more skeletal sites. It meets the World Health Organization's (WHO) criteria for ?low bone mass? (T-score between -1.0 and -2.5). The patient's 10-year risk of fracture as calculated by FRAX is less than the threshold where pharmacological therapy is recommended by the National Osteoporosis Foundation (NOF). However, all treatment decisions require clinical judgment and consideration of individual patient factors, including patient preferences, comorbidities, previous drug use, risk factors not captured in the FRAX model (e.g., frailty, falls, vitamin D deficiency, increased bone turnover, interva
== END 2023-04-01 12:16 | disposition home or self-care (01) ==
PROVIDERS: PCP Family Medicine; Visit Provider Family Medicine
DX: R92.8 Other abnormal and inconclusive findings on diagnostic imaging of breast (principal); Z78.0 Asymptomatic menopausal state; M85.89 Other specified disorders of bone density and structure, multiple sites; E03.9 Hypothyroidism, unspecified; F17.200 Nicotine dependence, unspecified, uncomplicated
CPT/HCPCS: 77061; 77065; 77080; G0279

== ENCOUNTER 2023-04-15 11:04 | Outpatient (CLI) | payer BC, SELFPAY ==
[2023-04-15 12:00] LABS: Basophils Absolute Auto 0.1 K/mm3 (0.0-0.1); Basophils Percent Auto 1.2 % (0.2-1.2); Eosinophils Absolute Auto 0.2 K/mm3 (0-0.3); Eosinophils Percent Auto 3.4 % (0-4.4); Hematocrit 42.7 % (37.0-47.0); Hemoglobin 13.7 g/dL (12.0-15.0); Immature Granulocyte Absolute 0.01 K/mm3 (0.00-0.031); Immature Granulocyte Percent A 0.2 % (0-0.5); Lymphocytes Absolute Auto 1.44 K/mm3 (0.9-3.2); Lymphocytes Percent Auto 25.6 % (18.3-44.2); Mean Corpuscular HGB Conc 32.1 g/dl (32-36); Mean Corpuscular Hemoglobin 31.2 pg (26-34); Mean Corpuscular Volume 97.3 fl (80-100); Mean Platelet Volume 11.3 fl (7.4-10.4); Monocytes Absolute Auto 0.4 K/mm3 (0.1-0.6); Monocytes Percent Auto 7.1 % (2.6-8.5); Neutrophils Absolute Auto 3.5 K/mm3 (1.3-6.7); Neutrophils Percent Auto 62.5 % (45.5-73.1); Platelet Count Result 207 k/mm3 (150-375); Red Blood Count 4.39 M/mm3 (4.2-5.4); Red Cell Distribution Width 12.2 % (11.5-14.5); White Blood Count 5.6 K/mm3 (4.5-10.0)
== END 2023-04-15 11:05 | disposition home or self-care (01) ==
PROVIDERS: PCP Family Medicine; Visit Provider Family Medicine
DX: Z00.00 Encounter for general adult medical examination without abnormal findings (principal); E03.9 Hypothyroidism, unspecified; I10 Essential (primary) hypertension; I35.0 Nonrheumatic aortic (valve) stenosis; Z95.2 Presence of prosthetic heart valve
CPT/HCPCS: 36415; 84443; 85025

== ENCOUNTER 2024-01-20 10:47 | Outpatient (CLI) | payer OTHER, SELFPAY ==
[2024-01-20 12:57] LABS: Hematocrit 42.1 % (37.0-47.0); Hemoglobin 13.6 g/dL (12.0-15.0); Mean Corpuscular HGB Conc 32.3 g/dl (32-36); Mean Corpuscular Hemoglobin 31.6 pg (26-34); Mean Corpuscular Volume 97.9 fl (80-100); Mean Platelet Volume 11.5 fl (7.4-10.4); Platelet Count Result 229 k/mm3 (150-375); Red Cell Distribution Width 12.3 % (11.5-14.5); White Blood Count 5.6 K/mm3 (4.5-10.0)
[2024-01-20 13:30] LABS: Alanine Aminotransferase 27 U/L (6-35); Albumin Level 4.3 g/dL (3.5-5.1); Alkaline Phosphatase 100 U/L (38-126); Anion Gap 4 mmol/L (4-12); Aspartate Amino Transferase 30 U/L (14-36); Bilirubin,Total 0.8 mg/dL (0.2-1.3); Blood Urea Nitrogen 11 mg/dL (7-17); Calcium 9.3 mg/dL (8.4-10.2); Carbon Dioxide 31 mmol/L (22-30); Chloride 106 mmol/L (98-107); Cholesterol 160 mg/dL (0-200); Estimated Glomerular Filt Rate > 60; Glucose 95 mg/dL (65-110); HDL Direct 46 mg/dL; Potassium 4.1 mmol/L (3.4-5.0); Sodium 141 mmol/L (137-145); Triglycerides 121 mg/dL (<150)
[2024-01-20 13:53] LABS: LDL Cholesterol Direct 100 mg/dL
[2024-01-20 14:06] LABS: Thyroid Stimulating Hormone 0.431 uIU/mL (0.465-4.680)
== END 2024-01-20 10:48 | disposition home or self-care (01) ==
PROVIDERS: PCP Family Medicine; Visit Provider Family Medicine
DX: D64.9 Anemia, unspecified (principal); E03.9 Hypothyroidism, unspecified; E55.9 Vitamin D deficiency, unspecified; F17.200 Nicotine dependence, unspecified, uncomplicated; I35.0 Nonrheumatic aortic (valve) stenosis; Z95.0 Presence of cardiac pacemaker
CPT/HCPCS: 36415; 80053; 80061; 84443; 85027

== ENCOUNTER 2024-08-08 07:46 | Outpatient (CLI) | payer OTHER, SELFPAY ==
[2024-08-08 08:28] LABS: Hematocrit 41.2 % (37.0-47.0); Hemoglobin 13.3 g/dL (12.0-15.0); Mean Corpuscular HGB Conc 32.3 g/dl (32-36); Mean Corpuscular Hemoglobin 31.5 pg (26-34); Mean Corpuscular Volume 97.6 fl (80-100); Mean Platelet Volume 11.8 fl (7.4-10.4); Platelet Count Result 208 k/mm3 (150-375); Red Blood Count 4.22 M/mm3 (4.2-5.4); Red Cell Distribution Width 12.3 % (11.5-14.5); White Blood Count 5.5 K/mm3 (4.5-10.0)
[2024-08-08 08:46] LABS: Alanine Aminotransferase 27 U/L (6-35); Alkaline Phosphatase 96 U/L (38-126); Anion Gap 3 mmol/L (4-12); Aspartate Amino Transferase 30 U/L (14-36); Bilirubin,Total 0.7 mg/dL (0.2-1.3); Blood Urea Nitrogen 15 mg/dL (7-17); Calcium 9.4 mg/dL (8.4-10.2); Carbon Dioxide 30 mmol/L (22-30); Chloride 107 mmol/L (98-107); Cholesterol 204 mg/dL (0-200); Estimated Glomerular Filt Rate > 60; Glucose 114 mg/dL (65-110); HDL Direct 49 mg/dL; Potassium 4.6 mmol/L (3.4-5.0); Sodium 140 mmol/L (137-145); Triglycerides 183 mg/dL (<150)
[2024-08-08 08:57] LABS: LDL Cholesterol Direct 112 mg/dL
[2024-08-08 10:11] LABS: Free T4 Free Thyroxine 1.44 ng/dL (0.78-2.19); Vitamin D 25 Hydroxy 29.1 ng/mL
== END 2024-08-08 07:47 | disposition home or self-care (01) ==
PROVIDERS: PCP Family Medicine; Visit Provider Family Medicine
DX: D64.9 Anemia, unspecified (principal); E03.9 Hypothyroidism, unspecified; E55.9 Vitamin D deficiency, unspecified; E78.2 Mixed hyperlipidemia; I10 Essential (primary) hypertension; I35.0 Nonrheumatic aortic (valve) stenosis; R12 Heartburn; Z00.00 Encounter for general adult medical examination without abnormal findings; Z95.0 Presence of cardiac pacemaker; Z95.2 Presence of prosthetic heart valve
CPT/HCPCS: 36415; 80053; 80061; 82306; 82607; 84439; 84443; 85027

== ENCOUNTER 2024-08-11 13:54 | Outpatient (CLI) | payer OTHER, SELFPAY ==
--- NOTE | ~2024-08-11 | CT_ITS ---
CT Scan of the Chest without Contrast: Clinical Indication: Lung cancer screening, nicotine dependence Technique: Contiguous sections were acquired throughout the chest without intravenous contrast. Dose reduction technique was used on this scan by utilizing automated exposure control and iterative recon struction technique. The dose-length product (DLP) was 66.11 mGy-cm. COMPARISON: 01/14/2023 Findings: There is no evidence of any significant mediastinal, hilar or axillary lymphadenopathy. Status post a scending aortic aneurysm repair. Aortic valve replacement also present. Pacemaker device present. There is no evidence of pleural or pericardial effusion. The lungs are clear. No pulmonary nodules or infiltrates are noted. Images through the upper abdomen reveal no abnormalities. Impression: Lung RADS 1: Negative. 12 month follow-up screening CT advised. Reviewed, dictated and finalized at [facility]. OPERATOR Impression: Lung RADS 1: Negative. 12 month follow-up screening CT advised.
== END 2024-08-11 13:55 | disposition home or self-care (01) ==
PROVIDERS: PCP Family Medicine; Visit Provider Family Medicine
DX: Z12.2 Encounter for screening for malignant neoplasm of respiratory organs (principal); Z87.891 Personal history of nicotine dependence
CPT/HCPCS: 71271

== ENCOUNTER 2024-11-22 08:34 | Outpatient (CLI) | payer OTHER, SELFPAY ==
--- NOTE | ~2024-11-22 | MM_ITS ---
EXAMINATION: MM screening robert BI w eddie HISTORY: Screening TECHNIQUE: Craniocaudal and mediolateral oblique 3-D tomosynthesis images were obtained and synthetic 2-D images were generated. CAD analysis was submitted and interpreted. COMPARISON: Comparison to multiple prior studies sequentially, with oldest reviewed study dated 12/2018. BREAST PARENCHYMAL COMPOSITION: Not Dense: The breasts are almost entirely fatty. FINDINGS: There is no evidence of suspicious mass, calcification, or architectural distortion to sugg est malignancy in either breast. There has been no suspicious interval change. IMPRESSION: 1. No mammographic evidence of malignancy. 2. Recommend routine screening mammography in one year. BI-RADS Category 1: Negative Reviewed, dictated and finalized at location B.
--- OUTSIDE RECORDS SUMMARY | 2024-11-22 09:02 | XMS_ITS | Referral Summary ---
Author Organization [facility] [place] [address] [place] [address] [address] [facility] [address] [place] [address] Care Team Providers Care Goggles Assembler Name Role Phone Nilson Trevino MD Primary Care Provider [phone] Encounters Date Type Department Care Team Description 09/26/2024 Orders Only [facility] Medical [facility] [address] [address] [address] [place] [address] ProviderRaheem MD 09/26/2024 3:30 PM RIGGER CHIEF Office Visit [facility] Medical Group Cardiology at [address] [place] [address] Mohamud Painter MD Cardiac pacemaker in situ (Primary Dx); Status post ascending aortic aneurysm repair; H/O aortic valve replacement; Complete heart block (HCC) 09/08/2024 Orders Only [facility] Medical [facility] [address] [facility] [address] [place] [address] Mohamud Painter MD Cardiac pacemaker in situ (Primary Dx); Complete heart block (HCC) from Last 3 Months Allergies No known active allergies Medications fish oil-dha-epa 1,200-144-216 mg capsule Take 1,000 mg by mouth 2 (two) times a day. 0 8 Active cholecalciferol (VITAMIN D-3) 2,000 unit tablet Take 2.5 tablets (5,000 Units total) by mouth daily Active levothyroxine (SYNTHROID) 75 mcg tablet Take 1 tablet (75 mcg total) by mouth pesticide applicator before breakfast Active calcium carbonate-vitam in D3 1500 mg (600 mg elemental) -200 units per tablet Take 2 tablets by mouth daily Active atorvastatin (LIPITOR) 40 mg tablet Take 1 tablet (40 mg total) by mouth daily 3 Active Active Problems Problem Noted Date Diagnosed Date Complete heart block 04/25/2019 Transaminitis 08/18/2018 Elevated alkaline phosphatase level 08/18/2018 Status post ascending aortic aneurysm repair Muscular deconditioning 08/18/2018 Pleural effusion 08/17/2018 Essential hypertension 08/17/2018 Acute blood loss anemia 08/17/2018 Cardiac pacemaker in situ 07/21/2018 Overview (05/06/2023): St Man Dual Pacemaker, Dx; CHB. DOI 07/21/2018-Munfakh. [place]. [place] remote monitoring alternate with office pacemaker checks Q6 mo. BATTERY ADVISORY. Noise on v-lead, First noted 03/02/23-Monitor. As of 05/05/23- Not PM Dependent. Aortic stenosis 06/30/2017 H/O aortic valve replacement Resolved Problems Problem Noted Date Diagnosed Date Resolved Date Hyponatremia 08/17/2018 08/18/2018 Aortic valve stenosis 06/21/20182017 Overview (08/17/2018): Added automatically from request for surgery [id number] Bicuspid aortic valve 06/30/20172017 Social History Tobacco Use Types Packs/Day Years Used Date Smoking Tobacco: Former Cigarettes Q uit: 05/31/2018 Smokeless Tobacco: Never Tobacco Cessation:Counseling Given: Not Answered Alcohol Use Standard Drinks/Week Comments Yes 0 (1 standard drink = 0.6 oz pur e alcohol) rarely Comments Unknown Sex and Gender Information Value Date Recorded Sex Assigned at Not on file Legal Sex Female 2:07 AM RIGGER CHIEF Gender Identity Not on file Sexual Orientation Not on file Last Filed Vital Signs Vital Sign Reading Time Taken Comments Blood Pressure 120/78 09/26/2024 3:35 PM RIGGER CHIEF Pulse 70 09/26/2024 3:35 PM RIGGER CHIEF Temperature 36.5 C (97.7 F) 04/11/2020 3:03 PM CDT Respiratory Rate 16 08/22/2024 12:06 PM RIGGER CHIEF Oxygen Saturation 99% 09/26/2024 3:35 PM RIGGER CHIEF Inhaled Oxygen Concentration - - Weight 59.4 kg (131 lb) 09/26/2024 3:35 PM RIGGER CHIEF Height 158.8 cm (5' 2.5 ) 09/26/2024 3:35 PM RIGGER CHIEF Body Mass Index 23.58 09/26/2024 3:35 PM RIGGER CHIEF Plan of Treatment Not on file Medical Devices Implanted Type Area Substation Electrician Device Identifier Shelf Expiration Date Model / Serial / Lot [employer] 8tc/52 Tendril Sts 6fr 52cm Is-1 Connector Active Fixation Bipolar Soft - [id number] - [id number] Implanted:Qty: 1 on 07/21/2018 by Yefri Pak MD at [facility] Lead Left: Heart [employer] 02/03/20218TC/52 / [id number] / [employer] 8tc/46 Tendril Sts 6fr 46cm Is-1 Connector Bipolar Active Fixation - [id number] - [id number] Implanted:Qty: 1 on 07/21/2018 by Yefri Pak MD at [facility] Lead Left: Heart [employer] 04/05/20218TC/46 / [id number] / [employer] [id number] Hemashield [place] 34mm 30cm Woven Smooth Needle Passage Suture - [id number] - [id number] Implanted:Qty: 1 on 07/18/2018 by Yefri Pak MD at [facility] Other - see comments N/A: Heart [employer] 09/05/2022 [id number] / [id number] / Description:Aortic root [employer] [id number] Assurity Mri [id number] 2 Chamber Is-1 Connector Thk6mm Pacemaker - [id number] - [id number] Implanted:Qty: 1 on 07/21/2018 by Yefri Pak MD at [facility] Pacemaker Left: Heart [employer] 10/06/2019 [id number] / [id number] / [employer] [id number] Juan-Luis Daniel ds Perimount Magna Ease Thermafix 25mm - [id number] - [id number] Implanted:Qty: 1 on 07/18/2018 by Yefri Pak MD at [facility] Prosthetic Valve N/A: Heart [employer] 03/10/2022 [id number] / [id number] / Procedures Procedure Name Priority Date/Time Associated Diagnosis Comments DEVICE CHECK - REMOTE Routine 09/08/2024 9:15 AM RIGGER CHIEF CHB (complete heart block) (HCC) Cardiac pacemaker in situ HEPATITIS PANEL, ACUTE Routine 08/17/2018 12:42 PM RIGGER CHIEF from Last 3 Months or Most Recently Relevant to Health Maintenance Results * DEVICE CHECK - REMOTE (09/08/2024 9:15 AM RIGGER CHIEF) Anatomical Region Laterality Modality Other Narrative 10/16/2024 4:[address] Man Dual Pacemaker, Dx; CHB. DOI 07/21/2018-Mellisa. [place]. [place] remote monitoring alternate with office pacemaker checks Q6 mo. BATTERY ADVISORY. Noise on v-lead, First noted 03/02/23-Monitor. As of 05/05/23-Not PM Dependent. Routine DDD Pacemaker Remote. Transmission attached. Battery status: 2.93 V, 2.4 years remaining battery life to ANNY. Stable lead impedances, pacing and sensing thresholds. Presenting rhythm: A paced/V paced AP-45%, PROGRAMMING ENGINEER-> 99% 8 AMS episodes noted, longest episode was 5 minutes and 2 seconds in duration, IEGM demonstrates atrial tachycardia. AF Logan %. 1 Ventricular high rate episodes detected, IEGM demonstrates oversensing of noise. Medications: No anticoagulation or cardiac meds See scanned report. Office pacemaker follow up: Benjamin. Will send letter to patient to schedule an office check in November 2024 Yo remote f/u 11/21/24. Armen Ramírez, RN us Mohamud Painter MD CV CARDIAC SERVICES PROC EDURES Final Result * Hepatitis panel, acute (08/17/2018 12:42 PM RIGGER CHIEF) Hep A IgM Negative Negative [facility] Hep B core IgM Negative Negative [facility] Hep C Ab Negative Negative [facility] HepBsAg Negative Negative [facility] Blood specimen (specimen) 08/17/2018 12:42 PM RIGGER CHIEF 08/17/2018 12:58 PM RIGGER CHIEF Narrative [facility] - 08/17/2018 1:49 PM RIGGER CHIEF Georgi Anne NP LAB MICROBIOLOGY - GENERA L ORDERABLES Final Result [facility] [id number] Department [place] [address] from Last 3 Months or Most Recently Relevant to Health Maintenance Insurance [facility] Advance Directives For more information, please contact: [phone] * Full Code (Latest Code Status on File) Date Activated Date Inactivated Comments 08/17/2018 2:05 AM 08/21/2018 4:17 PM * Full Code Date Activated Date Inactivated Comments 07/18/2018 3:18 PM 07/25/2018 5:10 PM Care Teams Goggles Assembler Relationship Specialty Start Date End Date Nilson Trevino MD PCP - General Family Practice 08/10/23
--- OUTSIDE RECORDS SUMMARY | 2024-11-22 09:02 | XMS_ITS | Clinical Summary ---
Author Organization [facility] [place] [address] Address [address] [place] [address] Care Team Providers Care Enamel Burner Name Role Phone Nilson Trevino MD Primary Care Provider [phone] [phone] Allergies No known active allergies Medications fish oil-dha-epa 1,200-144-216 mg capsule Take 1,000 mg by mouth 2 (two) times a day. 0 8 Active cholecalciferol (VITAMIN D-3) 2,000 unit tablet Take 2.5 tablets (5,000 Units total) by mouth daily Active levothyroxine (SYNTHROID) 75 mcg tablet Take 1 tablet (75 mcg total) by mouth arch pad cementer before breakfast Active calcium carbonate-vitam in D3 [...] Man Dual Pacemaker, Dx; CHB. DOI 07/21/2018-Munfakh. [place] Ram remote monitoring alternate with office pacemaker checks Q6 mo. BATTERY ADVISORY. Noise on v-lead, First noted 03/02/23-Monitor. As of 05/05/23- Not PM Dependent. Aortic stenosis 06/30/2017 H/O aortic valve replacement Resolved Problems Problem Noted Date Diagnosed Date Resolved Date Hyponatremia 08/17/2018 08/18/2018 Aortic valve stenosis 06/21/20182017 Overview (08/17/2018): Added automatically from request for surgery [id number] Bicuspid aortic valve 06/30/20172017 Encounters Date Type Department Care Team Description 09/26/2024 3:30 PM GANG SAWYER Office Visit [facility] Medical Group Cardiology at [address] [place] [address] Mohamud Painter MD Cardiac pacemaker in situ (Primary Dx); Status post ascending aortic aneurysm repair; H/O aortic valve replacement; Complete heart block (HCC) 09/26/[address] [facility] Medical Group Cardiology [address] [facility] [address] [place] [address] ProviderRaheem MD 09/08/[address] [facility] Medical Group Cardiology [address] [facility] [address] [address] Mohamud Painter MD Cardiac pacemaker in situ (Primary Dx); Complete heart block (HCC) from Last 3 Months Surgical History Surgery Date Site/Laterality Comments TONSILLECTOMY HYSTERECTOMY BREAST LUMPECTOMY Left CARDIAC SURGERY CARDIAC PACEMAKER PLACEMENT Medical History Medical History Date Comments Hypertension Heart murmur Aortic stenosis Hyperlipidemia Diverticulitis Pneumonia Anemia History of transfusion 2002 Cataract A-fib (HCC) started 3 weeks ago after surgery per patient Rib fracture 2013 s/p falling down the stairs Family History Medical History Relation Name Comments Heart disease Brother 1 Cancer Brother 2 Heart disease Brother 2 Heart attack Father 1 Coronary artery disease Father 2 Fami ly history of coronary artery disease - (Added by TW Conv) Heart disease Mother Kidney disease Mother Relation Name Status Comments Brother 1 Alive Brother 2 Alive Father 1 (Age 55) Father 2 Mother (Age 58) Social History Tobacco Use Types Packs/Day Years Used Date Smoking Tobacco: Former Cigarettes Q uit: 05/31/2018 Smokeless Tobacco: Never Tobacco Cessation:Counseling Given: Not Answered Alcohol Use Standard Drinks/Week Comments Yes 0 (1 standard drink = 0.6 oz pur e alcohol) rarely Comments Unknown Sex and Gender Information Value Date Recorded Sex Assigned at Not on file Legal Sex Female 2:07 AM GANG SAWYER Gender Identity Not on file Sexual Orientation Not on file Obstetrics History Last Filed Vital Signs Vital Sign Reading Time Taken Comments Blood Pressure 120/78 09/26/2024 3:35 PM GANG SAWYER Pulse 70 09/26/2024 3:35 PM GANG SAWYER Temperature 36.5 C (97.7 F) 04/11/2020 3:03 PM CDT Respiratory Rate 16 08/22/2024 12:06 PM GANG SAWYER Oxygen Saturation 99% 09/26/2024 3:35 PM GANG SAWYER Inhaled Oxygen Concentration - - Weight 59.4 kg (131 lb) 09/26/2024 3:35 PM GANG SAWYER Height 158.8 cm (5' 2.5 ) 09/26/2024 3:35 PM GANG SAWYER Body Mass Index 23.58 09/26/2024 3:35 PM GANG SAWYER Plan of Treatment Health Maintenance Due Date Last Done Comments Breast Cancer Screening-Mammogram 1955 Colon Cancer Screening-Colonoscopy 1955 Depression Screening 1955 Fall Risk Assessment 1955 Osteoporosis Screening-Bone Density Scan 1955 DTaP/Tdap/Td Vaccine (1 - Tdap) 1966 Hepatitis B Screening 1973 Pneumococcal vaccine 65+ (1 of 1 - PCV) 2005 Zoster Vaccine (1 of 2) 2005 Well Visit 65+ 2020 Influenza Vaccine (#1) 2024 Hepatitis C Screening Completed 08/17/2018 Medical Devices Implanted Type Area Svp Of Digital Device Identifier Shelf Expiration Date Model / Serial / Lot St [employer] 2087tc/52 Tendril Sts 6fr 52cm Is-1 Connector Active Fixation Bipolar Soft - [id number] - [id number] Implanted:Qty: 1 on 07/21/2018 by Yefri Pak MD at [facility] Lead Left: Heart [employer] Inc 02/03/20212087TC/52 / [id number] / [employer] 2088tc/46 Tendril Sts 6fr 46cm Is-1 Connector Bipolar Active Fixation - [id number] - [id number] Implanted:Qty: 1 on 07/21/2018 by Yefri Pak MD at [facility] Lead Left: Heart [employer] 04/05/20212087TC/ / [id number] / [employer] [id number] Hemashield [place] 34mm 30cm Woven Smooth Needle Passage Suture - [id number] - [id number] Implanted:Qty: 1 on 07/18/2018 by Yefri Pak MD at [facility] Other - see comments N/A: Heart [employer] 09/05/2022 [id number] / [id number] / Description:Aortic root [employer] Inc [id number] Assurity Mri [id number] 2 Chamber Is-1 Connector Thk6mm Pacemaker - [id number] - [id number] Implanted:Qty: 1 on 07/21/2018 by Yefri Pak MD at [facility] Pacemaker Left: Heart [employer] 10/06/2019 [id number] / [id number] / [employer] [id number] Juan-Luis Daniel ds Perimount Magna Ease Thermafix 25mm - [id number] - [id number] Implanted:Qty: 1 on 07/18/2018 by Yefri Pak MD at [facility] Prosthetic Valve N/A: Heart [employer] 03/10/2022 [id number] / [id number] / Procedures Procedure Name Priority Date/Time Associated Diagnosis Comments DEVICE CHECK - REMOTE Routine 09/08/2024 9:15 AM GANG SAWYER CHB (complete heart block) (HCC) Cardiac pacemaker in situ HEPATITIS PANEL, ACUTE Routine 08/17/2018 12:42 PM GANG SAWYER from Last 3 Months or Most Recently Relevant to Health Maintenance Results * DEVICE CHECK - REMOTE (09/08/2024 9:15 AM GANG SAWYER) Anatomical Region Laterality Modality Other Narrative 10/16/2024 4:[address] Man Dual Pacemaker, Dx; CHB. DOI 07/21/2018-Munfakh. Dawson. [place] remote monitoring alternate with office pacemaker checks Q6 mo. BATTERY ADVISORY. Noise on v-lead, First noted 03/02/23-Monitor. As of 05/05/23-Not PM Dependent. Routine DDD Pacemaker Remote. Transmission attached. Battery status: 2.93 V, 2.4 years remaining battery life to ANNY. Stable lead impedances, pacing and sensing thresholds. Presenting rhythm: A paced/V paced AP-45%, BARKER OPERATOR-> 99% 8 AMS episodes noted, longest episode was 5 minutes and 2 seconds in duration, IEGM demonstrates atrial tachycardia. AF [place] %. 1 Ventricular high rate episodes detected, IEGM demonstrates oversensing of noise. Medications: No anticoagulation or cardiac meds See scanned report. Office pacemaker follow up: Benjamin. Will send letter to patient to schedule an office check in November 2024 Yo remote f/u 11/21/24. Armen Ramírez RN Mohamud Painter MD CV CARDIAC SERVICES PROC EDURES Final Result * Hepatitis panel, acute (08/17/2018 12:42 PM GANG SAWYER) Hep A IgM Negative Negative [facility] Hep B core IgM Negative Negative [facility] Hep C Ab Negative Negative [facility] HepBsAg Negative Negative [facility] Blood specimen (specimen) 08/17/2018 12:42 PM GANG SAWYER 08/17/2018 12:58 PM GANG SAWYER Narrative [facility] - 08/17/2018 1:49 PM GANG SAWYER us Georgi Anne NP LAB MICROBIOLOGY - GENERA L ORDERABLES Final Result [facility] [id number] Department [place] [address] from Last 3 Months or Most Recently Relevant to Health Maintenance Insurance [facility] Advance Directives For more information, please contact: [phone] * Full Code (Latest Code Status on File) Date Activated Date Inactivated Comments 08/17/2018 2:05 AM 08/21/2018 4:17 PM * Full Code Date Activated Date Inactivated Comments 07/18/2018 3:18 PM 07/25/2018 5:10 PM Care Teams Enamel Burner Relationship Specialty Start Date End Date Nilson Trevino MD PCP - General Family Practice 08/10/23
== END 2024-11-22 08:35 | disposition home or self-care (01) ==
LOC: ANHIMG 08:37
PROVIDERS: PCP Family Medicine; Visit Provider Family Medicine
DX: Z12.31 Encounter for screening mammogram for malignant neoplasm of breast (principal); R92.8 Other abnormal and inconclusive findings on diagnostic imaging of breast
CPT/HCPCS: 77063; 77067

== ENCOUNTER 2025-02-05 14:27 | Outpatient (CLI) | payer OTHER, SELFPAY ==
--- OUTSIDE RECORDS SUMMARY | 2025-02-05 14:42 | XMS_ITS | Referral Summary ---
Author Organization [facility] [place] [address] [place] [address] 162 [address] [facility] [address] [place] [address] Care Team Providers Care Corral Boss Name Role Phone Nilson Trevino MD Primary Care Provider +1 [phone] Encounters Date Type Department Care Team Description 01/17/2025 3:30 PM CDT Ancillary Procedure [facility] Medical [facility] Cardiology [address] [facility] [address] [place] [address] Cardiac pacemaker in situ; Complete heart block (HCC) 01/16/2025 Telephone [facility] Cardiology [address] [place] [address] [place] [address] Mohamud Painter MD 11/21/2024 10:45 AM CDT Ancillary Procedure [facility] Cardiology [address] [place] [address] [place] [address] Cardiac pacemaker in situ; Complete heart block (HCC) from Last 3 Months Allergies No known active allergies Medications fish oil-dha-epa 1,200-144-216 mg capsule Take 1,000 mg by mouth 2 (two) times a day. 0 8 Active cholecalciferol (VITAMIN D-3) 2,000 unit tablet Take 2.5 tablets (5,000 Units total) by mouth daily Active levothyroxine (SYNTHROID) 75 mcg tablet Take 1 tablet (75 mcg total) by mouth clinical data manager before breakfast Active calcium carbonate-vitam in D3 [...] Dual Pacemaker, Dx; CHB. DOI 07/21/2018-Mellisa. Khushboo-Madina. Yo remote monitoring alternate with office pacemaker checks Q6 mo. BATTERY ADVISORY. Noise on v-lead, First noted 03/02/23-Monitor. As of 05/05/23- Not PM Dependent. Aortic stenosis 06/30/2017 H/O aortic valve replacement Resolved Problems Problem Noted Date Diagnosed Date Resolved Date Hyponatremia 08/17/2018 08/18/2018 Aortic valve stenosis 06/21/20182017 Overview (08/17/2018): Added automatically from request for surgery [id number] Bicuspid aortic valve 06/30/20172017 Social History Tobacco [...] on file Legal Sex Female 2:07 AM CASH APPLICATIONS REPRESENTATIVE Gender Identity Not on file Sexual Orientation Not on file Last Filed Vital Signs Vital Sign Reading Time Taken Comments Blood Pressure 120/78 09/26/2024 3:35 PM CASH APPLICATIONS REPRESENTATIVE Pulse 70 09/26/2024 3:35 PM CASH APPLICATIONS REPRESENTATIVE Temperature 36.5 C (97.7 F) 04/11/2020 3:03 PM CDT Respiratory Rate 16 08/22/2024 12:06 PM CASH APPLICATIONS REPRESENTATIVE Oxygen Saturation 99% 09/26/2024 3:35 PM CASH APPLICATIONS REPRESENTATIVE Inhaled Oxygen Concentration - - Weight 59.4 kg (131 lb) 09/26/2024 3:35 PM CASH APPLICATIONS REPRESENTATIVE Height 158.8 cm (5' 2.5) 09/26/2024 3:35 PM CASH APPLICATIONS REPRESENTATIVE Body Mass Index 23.58 09/26/2024 3:35 PM CASH APPLICATIONS REPRESENTATIVE Plan of Treatment Not on file Medical Devices Implanted Type Area Enrollment Nurse Device Identifier Shelf Expiration Date Model / Serial / Lot [employer] 8tc/52 Tendril Sts 6fr 52cm Is-1 Connector Active Fixation Bipolar Soft - [id number] - [id number] Implanted:Qty: 1 on 07/21/2018 by Yefri Pak MD at [facility] Lead Left: Heart [employer] Inc 02/03/20218TC/52 / [id number] / [employer] Inc 8tc/46 Tendril Sts 6fr 46cm Is-1 Connector Bipolar Active Fixation - [id number] - [id number] Implanted:Qty: 1 on 07/21/2018 by Yefri Pak MD at [facility] Lead Left: Heart [employer] Inc 04/05/20212087TC/46 / [id number] / Cole [employer] [id number] Hemashield [place] 34mm 30cm Woven Smooth Needle Passage Suture - [id number] - [id number] Implanted:Qty: 1 on 07/18/2018 by Yefri Pak MD at [facility] Other - see comments N/A: Heart [employer], formerly [employer] 09/05/2022 [id number] / [id number] / Description:Aortic root [employer] Man [employer] Sc Inc [id number] Assurity Mri [id number] 2 Chamber Is-1 Connector Thk6mm Pacemaker - [id number] - [id number] Implanted:Qty: 1 on 07/21/2018 by Yefri Pak MD at [facility] Pacemaker Left: Heart [employer] Inc 10/06/2019 [id number] / [id number] / [employer] [id number] Juan-Luis Daniel ds Perimount Magna Ease Thermafix 25mm - [id number] - [id number] Implanted:Qty: 1 on 07/18/2018 by Yefri Pak MD at [facility] Prosthetic Valve N/A: Heart [employer] 03/10/2022 [id number] / [id number] / Procedures Procedure Name Priority Date/Time Associated Diagnosis Comments DEVICE CHECK - IN OFFICE Routine 01/17/2025 3:12 PM CDT Cardiac pacemaker in situ Complete heart block (HCC) DEVICE CHECK - REMOTE Routine 11/23/2024 1:47 PM CDT Cardiac pacemaker in situ Complete heart block (HCC) HEPATITIS PANEL, ACUTE Routine 08/17/2018 12:42 PM CASH APPLICATIONS REPRESENTATIVE from Last 3 Months or Most Recently Relevant to Health Maintenance Results * DEVICE CHECK - IN OFFICE (01/17/2025 3:12 PM CDT) Anatomical Region Laterality Modality Other Narrative 01/19/2025 10:[address] Man Dual Pacemaker, Dx; CHB, Post op Afib. DOI 07/21/2018-Mellisa. Yo remote monitoring Q3 mo, office device checks Q1 yr. Supervising MD: Dr Oliver. Office DDD Pacemaker evaluation demonstrated normal device function. Left pectoral incision well healed without signs of infection noted. Battery function-2.92V, 2.0 years remaining battery life to ANNY. Appropriate lead measurements noted. Presenting [id number]-PO-UV. Underlying rhythm-CHB, slow ventricular escape. Consider Pacemaker dependent. AP-43%, DIETARY DIRECTOR->99%. 13 mode switch episodes recorded, iegm's Atach, max duration of 10 minutes. 2 ventricular high rate episodes noted and noise reversions noted, iegm's show noise on v-channel, 2 second durations. Was noted initially on yo remote 03/02/23. Will continue to monitor. Medications; Lipitor. See scanned report. Office pacemaker f/u 04/10/2026. [place] remote f/u 04/24/2025. Elyssa Cervantes RN Mohamud Painter MD CV CARDIAC SERVICES PROC EDURES Final Result * DEVICE CHECK - REMOTE (11/23/2024 1:47 PM CDT) Anatomical Region Laterality Modality Other Narrative 11/24/2024 8:[address] Man Dual Pacemaker, Dx; CHB. DOI 07/21/2018-Munfakh. Dawson. [place] remote monitoring alternate with office pacemaker checks Q6 mo. BATTERY ADVISORY. Noise on v-lead, First noted 03/02/23-Monitor. As of 05/05/23-Not PM Dependent. Routine DDD Pacemaker Remote. Transmission attached. Battery status: 2.93 V, 2.1 years remaining battery life to ANNY. Stable lead impedances, pacing and sensing thresholds. Presenting rhythm: /DIETARY DIRECTOR AP-45%, DIETARY DIRECTOR - >99% 4 AMS episodes noted, longest episode was 5 minutes and 26 seconds in duration, IEGM demonstrates atrial tachycardia. AF [place] < 1%. 1 Ventricular high rate episodes detected, IEGM demonstrates detection of noisy ventricular lead. Medications: No anticoagulation or cardiac meds See scanned report. Office pacemaker follow up: Patient no showed for an office visit. No-show letter sent [place] remote f/u 02/20/25. Armen Ramírez, PAMELA us Mohamud Painter MD CV CARDIAC SERVICES PROC EDURES Final Result * Hepatitis panel, acute (08/17/2018 12:42 PM CASH APPLICATIONS REPRESENTATIVE) Hep A IgM Negative Negative [facility] Hep B core IgM Negative Negative [facility] CH Hep C Ab Negative Negative [facility] CH HepBsAg Negative Negative C[facility]ER Blood specimen (specimen) 08/17/2018 12:42 PM CASH APPLICATIONS REPRESENTATIVE 08/17/2018 12:58 PM CASH APPLICATIONS REPRESENTATIVE Narrative [facility] - 08/17/2018 1:49 PM CASH APPLICATIONS REPRESENTATIVE us Georgi Anne NP LAB MICROBIOLOGY - GENERA L ORDERABLES Final Result TAMIR HODGE [id number] [address] Department [place] [address] from Last 3 Months or Most Recently Relevant to Health Maintenance Insurance [facility] Advance Directives For more information, please contact: [phone] * Full Code (Latest Code Status on File) Date Activated Date Inactivated Comments 08/17/2018 2:05 AM 08/21/2018 4:17 PM * Full Code Date Activated Date Inactivated Comments 07/18/2018 3:18 PM 07/25/2018 5:10 PM Care Teams Corral Boss Relationship Specialty Start Date End Date Nilson Trevino MD PCP - General Family Practice 08/10/23
--- OUTSIDE RECORDS SUMMARY | 2025-02-05 14:42 | XMS_ITS | Clinical Summary ---
Author Organization [facility] [place] [address] [place] [address] Care Team Providers Care Biofuels Technology Manager Name Role Phone Nilson Trevino MD Primary Care Provider +1 [phone] Allergies No known active allergies Medications fish oil-dha-epa 1,200-144-216 mg capsule Take 1,000 mg by mouth 2 (two) times a day. 0 8 Active cholecalciferol (VITAMIN D-3) 2,000 unit tablet Take 2.5 tablets (5,000 Units total) by mouth daily Active levothyroxine (SYNTHROID) 75 mcg tablet Take 1 tablet (75 mcg total) by mouth end user consultant before breakfast Active calcium carbonate-vitam in D3 [...] (08/17/2018): Added automatically from request for surgery [id number] Bicuspid aortic valve 06/30/20172017 Encounters Date Type Department Care Team Description 01/17/2025 3:30 PM CDT Ancillary Procedure [facility] Cardiology [address] [facility] [address] [place] [phone] Cardiac pacemaker in situ; Complete heart block (HCC) 01/16/[address] [facility] Cardiology [address] [place] [address] [place] [phone] Mohamud Painter MD 11/21/2024 10:45 AM CDT Ancillary Procedure [facility] Cardiology [address] [facility] [address] [place] [address] Cardiac pacemaker in situ; Complete heart [...] on file Legal Sex Female 2:07 AM PRINT PRODUCTION COORDINATOR Gender Identity Not on file Sexual Orientation Not on file Obstetrics History Last Filed Vital Signs Vital Sign Reading Time Taken Comments Blood Pressure 120/78 09/26/2024 3:35 PM PRINT PRODUCTION COORDINATOR Pulse 70 09/26/2024 3:35 PM PRINT PRODUCTION COORDINATOR Temperature 36.5 C (97.7 F) 04/11/2020 3:03 PM CDT Respiratory Rate 16 08/22/2024 12:06 PM PRINT PRODUCTION COORDINATOR Oxygen Saturation 99% 09/26/2024 3:35 PM PRINT PRODUCTION COORDINATOR Inhaled Oxygen Concentration - - Weight 59.4 kg (131 lb) 09/26/2024 3:35 PM PRINT PRODUCTION COORDINATOR Height 158.8 cm (5' 2.5) 09/26/2024 3:35 PM PRINT PRODUCTION COORDINATOR Body Mass Index 23.58 09/26/2024 3:35 PM PRINT PRODUCTION COORDINATOR Plan of Treatment Health Maintenance Due Date Last Done Comments Breast Cancer Screening-Mammogram 1955 Colon Cancer Screening-Colonoscopy 1955 Depression Screening 1955 Fall Risk Assessment 1955 Osteoporosis Screening-Bone Density Scan 1955 DTaP/Tdap/Td Vaccine (1 - Tdap) 1966 Hepatitis B Screening 1973 Pneumococcal vaccine 65+ (1 of 1 - PCV) 2005 Zoster Vaccine (1 of 2) 2005 Well Visit 65+ 2020 Influenza Vaccine (Season Ended) 2025 Hepatitis C Screening Completed 08/17/2018 Medical Devices Implanted Type Area Compressed Yeast Supervisor Device Identifier Shelf Expiration Date Model / Serial / Lot [employer] Inc 2087tc/52 Tendril Sts 6fr 52cm Is-1 Connector Active Fixation Bipolar Soft - [id number] - [id number] Implanted:Qty: 1 on 07/21/2018 by Yefri Pak MD at Lead Left: Heart [employer] Sc Inc 02/03/20218TC/52 / [id number] / [employer] Inc 2087tc/46 Tendril Sts 6fr 46cm Is-1 Connector Bipolar Active Fixation - [id number] - [id number] Implanted:Qty: 1 on 07/21/2018 by Yefri Pak MD at Lead Left: Heart [employer] Inc 04/05/2021 2088TC/46 / [id number] / [employer] [id number] Hemashield [place] 34mm 30cm Woven Smooth Needle Passage Suture - [id number] - [id number] Implanted:Qty: 1 on 07/18/2018 by Yefri Pak MD at Other - see comments N/A: Heart [employer] 09/05/2022 [id number] / [id number] / Description:Aortic root [employer] Man [employer] Sc Inc [id number] Assurity Mri [id number] 2 Chamber Is-1 Connector Thk6mm Pacemaker - [id number] - [id number] Implanted:Qty: 1 on 07/21/2018 by Yefri Pak MD at Pacemaker Left: Heart [employer] Inc 10/06/2019 [id number] / [id number] / [employer] [id number] Juan-Luis Daniel ds Perimount Magna Ease Thermafix 25mm - [id number] - [id number] Implanted:Qty: 1 on 07/18/2018 by Yefri Pak MD at Prosthetic Valve N/A: Heart [employer] 03/10/2022 [id number] / [id number] / Procedures Procedure Name Priority Date/Time Associated Diagnosis Comments DEVICE CHECK - IN OFFICE Routine 01/17/2025 3:12 PM CDT Cardiac pacemaker in situ Complete heart block (HCC) DEVICE CHECK - REMOTE Routine 11/23/2024 1:47 PM CDT Cardiac pacemaker in situ Complete heart block (HCC) HEPATITIS PANEL, ACUTE Routine 08/17/2018 12:42 PM PRINT PRODUCTION COORDINATOR from Last 3 Months or Most Recently Relevant to Health Maintenance Results * DEVICE CHECK - IN OFFICE (01/17/2025 3:12 PM CDT) Anatomical Region Laterality Modality Other Narrative 01/19/2025 10:[address] Man Dual Pacemaker, Dx; CHB, Post op Afib. DOI 07/21/2018-Mellisa. [place] remote monitoring Q3 mo, office device checks Q1 yr. Supervising MD: Dr Oliver. Office DDD Pacemaker evaluation demonstrated normal device function. Left pectoral incision well healed without signs of infection noted. Battery function-2.92V, 2.0 years remaining battery life to ANNY. Appropriate lead measurements noted. Presenting [id number]. Underlying rhythm-CHB, slow ventricular escape. Consider Pacemaker dependent. AP-43%, SENIOR RESEARCH PROJECT MANAGER->99%. 13 mode switch episodes recorded, iegm's Atach, max duration of 10 minutes. 2 ventricular high rate episodes noted and noise reversions noted, iegm's show noise on v-channel, 2 second durations. Was noted initially on yo remote 03/02/23. Will continue to monitor. Medications; Lipitor. See scanned report. Office pacemaker f/u 04/10/2026. [place] remote f/u 04/24/2025. Elyssa Cervantes, PAMELA us Mohamud Painter MD CV CARDIAC [...] impedances, pacing and sensing thresholds. Presenting rhythm: /SENIOR RESEARCH PROJECT MANAGER AP-45%, SENIOR RESEARCH PROJECT MANAGER - >99% 4 AMS episodes noted, longest episode was 5 minutes and 26 seconds in duration, IEGM demonstrates atrial tachycardia. AF [place] < 1%. 1 Ventricular high rate episodes detected, IEGM demonstrates detection of noisy ventricular lead. Medications: No anticoagulation or cardiac meds See scanned report. Office pacemaker follow up: Patient no showed for an office visit. No-show letter sent [facility] f/u 02/20/25. Armen Ramírez, PAMELA us Mohamud Painter MD CV CARDIAC SERVICES PROC EDURES Final Result * Hepatitis panel, acute (08/17/2018 12:42 PM PRINT PRODUCTION COORDINATOR) Hep A IgM Negative Negative [facility] Hep B core IgM Negative Negative [facility] CH Hep C Ab Negative Negative [facility] CH HepBsAg Negative Negative [facility] CH Blood specimen (specimen) 08/17/2018 12:42 PM PRINT PRODUCTION COORDINATOR 08/17/2018 12:58 PM PRINT PRODUCTION COORDINATOR Narrative [facility] - 08/17/2018 1:49 PM PRINT PRODUCTION COORDINATOR Georgi Anne NP LAB MICROBIOLOGY - GENERA L ORDERABLES Final Result TAMIR [id number] [address] Department [place] [address] from Last 3 Months or Most Recently Relevant to Health Maintenance Insurance [facility] Advance Directives For more information, please contact: [phone] * Full Code (Latest Code Status on File) Date Activated Date Inactivated Comments 08/17/2018 2:05 AM 08/21/2018 4:17 PM * Full Code Date Activated Date Inactivated Comments 07/18/2018 3:18 PM 07/25/2018 5:10 PM Care Teams Biofuels Technology Manager Relationship Specialty Start Date End Date Nilson Trevino MD PCP - General Family Practice 08/10/23
[2025-02-05 15:22] LABS: Hemoglobin A1C 5.4 % (<5.7)
== END 2025-02-05 14:28 | disposition home or self-care (01) ==
PROVIDERS: PCP Family Medicine; Visit Provider Family Medicine
DX: R73.9 Hyperglycemia, unspecified (principal); Z79.899 Other long term (current) drug therapy
CPT/HCPCS: 36415; 83036

== ENCOUNTER 2025-08-23 14:04 | Outpatient (CLI) | payer OTHER, SELFPAY ==
[2025-08-23 14:35] LABS: Hematocrit 40.5 % (37.0-47.0); Hemoglobin 13.4 g/dL (12.0-15.0); Immature Granulocyte Percent A 0.4 % (0-0.5); Lymphocytes Absolute Auto 1.67 K/mm3 (0.9-3.2); Mean Corpuscular HGB Conc 33.1 g/dl (32-36); Mean Corpuscular Hemoglobin 31.8 pg (26-34); Mean Corpuscular Volume 96.0 fl (80-100); Nucleated Red Blood Cells Absolute Auto 0.000 K/mm3 (0.0-0.012); Nucleated Red Blood Cells Perc 0.0 % (0.0-0.2); Platelet Count Result 228 k/mm3 (150-375); Red Blood Count 4.22 M/mm3 (4.2-5.4); White Blood Count 7.3 K/mm3 (4.5-10.0)
[2025-08-23 14:48] LABS: Alanine Aminotransferase 28 U/L (6-35); Albumin Level 4.4 g/dL (3.5-5.1); Alkaline Phosphatase 101 U/L (38-126); Anion Gap 7 mmol/L (4-12); Aspartate Amino Transferase 29 U/L (14-36); Bilirubin,Total 0.7 mg/dL (0.2-1.3); Blood Urea Nitrogen 10 mg/dL (7-17); Calcium 9.7 mg/dL (8.4-10.2); Carbon Dioxide 28 mmol/L (22-30); Chloride 106 mmol/L (98-107); Estimated Glomerular Filt Rate > 60; Glucose 87 mg/dL (65-110); Potassium 4.5 mmol/L (3.4-5.0); Sodium 141 mmol/L (137-145); Total Protein 7.6 g/dL (6.3-8.2)
--- OUTSIDE RECORDS SUMMARY | 2025-08-23 15:04 | XMS_ITS | Clinical Summary ---
Author Organization [facility] [place] [address] [place] [address] Care Team Providers Care Edge Drummer Name Role Phone Nilson Trevino MD Primary Care Provider +1 -[phone] Allergies No known active allergies Medications fish oil-dha-epa 1,200-144-216 mg capsule Take 1,000 mg by mouth 2 (two) times a day. 0 8 Active cholecalciferol (VITAMIN D-3) 2,000 unit tablet Take 2.5 tablets (5,000 Units total) by mouth daily Active levothyroxine (SYNTHROID) 75 mcg tablet Take 1 tablet (75 mcg total) by mouth annealing oven operator before breakfast Active calcium carbonate-vitam in D3 [...] (08/17/2018): Added automatically from request for surgery [id number] Bicuspid aortic valve 06/30/20172017 Encounters Date Type Department Care Team Description 07/24/2025 7:45 AM SEALING MACHINE OPERATOR Ancillary Procedure [facility] Cardiology [address] [facility] [address], [place] [address] Cardiac pacemaker in situ; Complete heart block (HCC) 07/19/2025 Orders Only [facility] Medicine Surgery [address] [facility] [address] [place] [address] Yefri Pak MD Nonrheumatic aortic valve stenosis (Primary Dx) from Last 3 Months Surgical History Surgery [...] on file Legal Sex Female 2:07 AM SEALING MACHINE OPERATOR Gender Identity Not on file Sexual Orientation Not on file Last Filed Vital Signs Vital Sign Reading Time Taken Comments Blood Pressure 120/78 09/26/2024 3:35 PM SEALING MACHINE OPERATOR Pulse 70 09/26/2024 3:35 PM SEALING MACHINE OPERATOR Temperature 36.5 C (97.7 F) 04/11/2020 3:03 PM CDT Respiratory Rate 16 08/22/2024 12:06 PM SEALING MACHINE OPERATOR Oxygen Saturation 99% 09/26/2024 3:35 PM SEALING MACHINE OPERATOR Inhaled Oxygen Concentration - - Weight 59.4 kg (131 lb) 09/26/2024 3:35 PM SEALING MACHINE OPERATOR Height 158.8 cm (5' 2.5) 09/26/2024 3:35 PM SEALING MACHINE OPERATOR Body Mass Index 23.58 09/26/2024 3:35 PM SEALING MACHINE OPERATOR Plan of Treatment Health Maintenance Due Date Last Done Comments Breast Cancer Screening-Mammogram 1955 Colon Cancer Screening-Colonoscopy 1955 Depression Screening 1955 Fall Risk Assessment 1955 Osteoporosis Screening-Bone Density Scan 1955 DTaP/Tdap/Td Vaccine (1 - Tdap) 1966 Hepatitis B Screening 1973 Pneumococcal vaccine 65+ (2 of 2 - PCV) 2005 1 Zoster Vaccine (1 of 2) 2005 Well Visit 65+ 2020 Influenza Vaccine (#1) 2025 Hepatitis C Screening Completed 08/17/2018 Medical Devices Implanted Type Area Bellman Captain Device Identifier Shelf Expiration Date Model / Serial / Lot [employer] 2087tc/52 Tendril Sts 6fr 52cm Is-1 Connector Active Fixation Bipolar Soft - [id number] - [id number] Implanted:Qty: 1 on 07/21/2018 by Yefri Pak MD at [facility] Lead Left: Heart [employer] Inc 02/03/20218TC/52 / [id number] / [employer] 2087tc/46 Tendril Sts 6fr 46cm Is-1 Connector Bipolar Active Fixation - [id number] - [id number] Implanted:Qty: 1 on 07/21/2018 by Yefri Pak MD at [facility] Lead Left: Heart [employer] 04/05/20218TC/46 / [id number] / [id number] Hemashield [place] 34mm 30cm Woven Smooth Needle Passage Suture - [id number] - [id number] Implanted:Qty: 1 on 07/18/2018 by Yefri Pak MD at [facility] Other - see comments N/A: Heart [employer] 09/05/2022 [id number] / [id number] / Description:Aortic root [employer] Inc [id number] Assurity Mri [id number] 2 Chamber Is-1 Connector Thk6mm Pacemaker - [id number] - [id number] Implanted:Qty: 1 on 07/21/2018 by Yefri Pak MD at [facility] Pacemaker Left: Heart [employer] 10/06/2019 [id number] / [id number] / [employer] [id number] Juan-Luis Daniel ds Perimount Magna Ease Thermafix 25mm - [id number] - [id number] Implanted:Qty: 1 on 07/18/2018 by Yefri Pak MD at [facility] Prosthetic Valve N/A: Heart [employer] 03/10/2022 [id number] / [id number] / Procedures Procedure Name Priority Date/Time Associated Diagnosis Comments DEVICE CHECK - REMOTE Routine 07/24/2025 9:08 AM SEALING MACHINE OPERATOR Cardiac pacemaker in situ Complete heart block (HCC) HEPATITIS PANEL, ACUTE Routine 08/17/2018 12:42 PM SEALING MACHINE OPERATOR from Last 3 Months or Most Recently Relevant to Health Maintenance Results * DEVICE CHECK - REMOTE (07/24/2025 9:08 AM SEALING MACHINE OPERATOR) Anatomical Region Laterality Modality Other Narrative 07/27/2025 1:22 [address] SEALING MACHINE OPERATOR [address] Man Dual Pacemaker, Dx; CHB. DOI 07/21/2018-Mellisa. Khushboo-Madina. Yo remote monitoring alternate with office pacemaker checks Q6 mo. BATTERY ADVISORY. Noise on v-lead, First noted 03/02/23-Monitor. As of 05/05/23-Not PM Dependent. Routine DDD Pacemaker Remote. Transmission attached. Battery status: 2.87 V , 1.3 years remaining battery life to ANNY. Stable lead impedances, pacing and sensing thresholds. Presenting rhythm: AP/MEDICAL INFORMATION OFFICER AP-58%, MEDICAL INFORMATION OFFICER-> 99% 38 AMS episodes noted, longest episode was 3 minutes and 24 seconds in duration, IEGM demonstrates atrial tachycardia. AF [place] < 1%. 4 Ventricular high rate episodes detected, IEGM demonstrates noise on ventricular lead. Medications: No anticoagulation or cardiac meds See scanned report. Office pacemaker follow up: 04/10/26 [place] remote f/u 10/23/25. Armen Ramírez, PAMELA us Mohamud Painter MD CV CARDIAC SERVICES PROC EDURES Final Result * Hepatitis panel, acute (08/17/2018 12:42 PM SEALING MACHINE OPERATOR) Hep A IgM Negative Negative [facility] CH Hep B core IgM Negative Negative [facility] CH Hep C Ab Negative Negative [facility] CH HepBsAg Negative Negative [facility] Blood specimen (specimen) 08/17/2018 12:42 PM SEALING MACHINE OPERATOR 08/17/2018 12:58 PM SEALING MACHINE OPERATOR Narrative [facility] - 08/17/2018 1:49 PM SEALING MACHINE OPERATOR us Georgi Anne NP LAB MICROBIOLOGY - GENERA L ORDERABLES Final Result TAMIR [id number] [address] Moise Department [place] [address] from Last 3 Months or Most Recently Relevant to [place] [address] [facility] Advance Directives For more information, please contact: [phone] * Full Code (Latest Code Status on File) Date Activated Date Inactivated Comments 08/17/2018 2:05 AM 08/21/2018 4:17 PM * Full Code Date Activated Date Inactivated Comments 07/18/2018 3:18 PM 07/25/2018 5:10 PM Care Teams Edge Drummer Relationship Specialty Start Date End Date Nilson Trevino MD PCP - General Family Practice 08/10/23
[2025-08-23 15:24] LABS: Thyroid Stimulating Hormone 0.996 uIU/mL (0.465-4.680)
[2025-08-23 16:00] LABS: Vitamin B12 267.0 pg/mL (239-931)
== END 2025-08-23 14:05 | disposition home or self-care (01) ==
PROVIDERS: PCP Family Medicine; Visit Provider Family Medicine
DX: E53.8 Deficiency of other specified B group vitamins (principal); I10 Essential (primary) hypertension; E03.9 Hypothyroidism, unspecified; E55.9 Vitamin D deficiency, unspecified; D64.9 Anemia, unspecified; Z79.899 Other long term (current) drug therapy
CPT/HCPCS: 36415; 80053; 82306; 82607; 82746; 84443; 85025